=== PATIENT | male | born 1975 | race Caucasian/White ===

== ENCOUNTER 2019-10-21 13:29 | Emergency (ER) | payer OTHER ==
[2019-10-21] MEDS ORDERED: AMOXIC-POT CLAV 875-125MG 1 EACH TAB PO STA (13:42)
[2019-10-21 13:44] VITALS: BP 132/82; PULSE 85; RESP 18; TEMP 97.9
--- NOTE | 2019-10-21 13:47 | ED ---
Animal Bite HPI - General Stated Complaint: Animal Bite Time Seen by Provider: 10/21/19 13:34 Source: patient, RN notes reviewed Mode of arrival: ambulatory Limitations: no limitations - History of Present Illness Initial Comments: 44-year-old male presents emergency Department with chief complaint of squirrel bite to his right hand index finger. Patient states he had a squirrel in his house and which he try to get out and it bit his finger through the nail. There was minimal bleeding. Patient wasn't sure if he required rabies. He is up-to-date on his vaccinations. Patient denies any other complaints at this time. - Related Data Previous Rx's Medication Instructions Recorded Amoxicillin/Potassium Clav 1 tab PO Q12HR #14 tab 10/21/19 [Augmentin 875-125 Tablet] Review of Systems ROS Statement: Those systems with pertinent positive or pertinent negative responses have been documented in the HPI. ROS Other: All systems not noted in ROS Statement are negative. General Exam General appearance: alert, in no apparent distress Head exam: Present: atraumatic, normocephalic, normal inspection Respiratory exam: Present: normal lung sounds bilaterally. Absent: respiratory distress, wheezes, rales, rhonchi, stridor Cardiovascular Exam: Present: regular rate, normal rhythm, normal heart sounds. Absent: systolic murmur, diastolic murmur, rubs, gallop, clicks Extremities exam: Present: other (Right hand index finger there is a small laceration, puncture wound noted neurovascular intact full range of motion) Medical Decision Making - Medical Decision Making Patient has squirrel bite and which CBC recommendations are no rabies vaccine to be given patient we placed on antibiotics. Return parameters were discussed. Disposition Clinical Impression: Bitten by squirrel Disposition: HOME SELF-CARE Condition: Stable Instructions (If sedation given, give patient instructions): Animal Bite (ED) Additional Instructions: Please return to the Emergency Department if symptoms worsen or any other concerns. Prescriptions: Amoxicillin/Potassium Clav [Augmentin 875-125 Tablet] 1 tab PO Q12HR #14 tab Is patient prescribed a controlled substance at d/c from ED?: No Referrals: Isaac Vásquez MD [Primary Care Provider] - 1-2 days Time of Disposition: 13:46
== END 2019-10-21 13:55 | disposition home or self-care (01) ==
LOC: EC 13:29
DX: S61.210A Laceration without foreign body of right index finger without damage to nail, initial encounter (principal); S61.230A Puncture wound without foreign body of right index finger without damage to nail, initial encounter; W53.21XA Bitten by squirrel, initial encounter
CPT/HCPCS: 99283

== ENCOUNTER 2020-01-08 22:58 | Emergency (ER) | payer OTHER ==
[2020-01-08] MEDS ORDERED: MORPHINE SULFATE 4 MG/ML SYRINGE IV STA (23:27)
[2020-01-08] MEDS ORDERED: DIPH,PERTUS(ACELL)TETVAC-LF 0.5 ML VIAL IM ONE (23:27)
--- NOTE | 2020-01-08 23:42 | XR ---
EXAMINATION TYPE: XR hand limited LT DATE OF EXAM: 01/08/2020 COMPARISON: NONE HISTORY: Cat bite. Possible foreign body. TECHNIQUE: 2 views FINDINGS: Metacarpals are intact. I see no fracture nor dislocation. There is no evidence of radiopaq ue foreign body. IMPRESSION: Negative left hand exam. No fracture. No sign of a foreign body.
[2020-01-08] MEDS ORDERED: AMPICILLIN-SULBACTAM 1.5 GM in SODIUM CHLORIDE 0.9% 50 ML IVPB ONE (23:45)
--- NOTE | 2020-01-08 23:57 | ED ---
Animal Bite HPI - General Chief Complaint: Animal Bite Stated Complaint: Cat bite L Hand Time Seen by Provider: 01/08/20 23:05 Source: patient Mode of arrival: ambulatory Limitations: no limitations - History of Present Illness Initial Comments: Memo is a 44 yo [id number] M who presents to emergency department today for evaluation of Right to the left hand. Patient reports that this afternoon around 1 PM he was at home with his When she got spooked by something, he attempted to reach down and pick her up but she bit him on the left hand. Patient reports that he immediately washed the bite with rubbing alcohol. He reports that since that time his hand is become swollen and painful which prompted him to come to the ER for evaluation. Patient does not believe he's had a tetanus vaccine in the past 5 years. - Related Data Previous Rx's Medication Instructions Recorded Amoxicillin/Potassium Clav 1 tab PO Q12HR #14 tab 10/21/19 [Augmentin 875-125 Tablet] Amoxicillin/Potassium Clav 1 tab PO Q12HR #14 tab 01/09/20 [Augmentin 875-125 Tablet] Allergies Allergy/AdvReac Type Severity Reaction Status Date / Time nicotine Allergy Unknown Verified 01/08/20 23:03 Review of Systems ROS Statement: Those systems with pertinent positive or pertinent negative responses have been documented in the HPI. ROS Other: All systems not noted in ROS Statement are negative. Past Medical History Past Medical History: No Reported History History of Any Multi-Drug Resistant Organisms: None Reported Past Surgical History: No Surgical Hx Reported Past Psychological History: No Psychological Hx Reported Smoking Status: Never smoker Past Alcohol Use History: None Reported Past Drug Use History: None Reported General Exam - General Exam Comments Initial Comments: Physical Exam GENERAL: Patient is well-developed and well-nourished. Patient is nontoxic and well-hydrated and is in no distress. HENT: Normocephalic, Atraumatic. EYES: PERRL, EOMI PULMONARY: Unlabored respirations. CARDIOVASCULAR: RRR Warm and well perfused extremities ABDOMEN: Non-distended SKIN: Single puncture wound on the dorsal surface and single puncture wound on the ventral surface of the left hand : Deferred NEUROLOGIC: Alert and oriented Normal speech Normal gait MUSCULOSKELETAL: Able to flex and extend left wrist full ROM of thumb decreased flexion of left index finger secondary to swelling and pain Left index finger position of comfort is straight, no flexion No fusiform swelling PSYCHIATRIC: No SI/HI Limitations: no limitations Left Hand L/R Front: 1 - other (Bite) Hand L/R Back: 1 - Puncture site Course Vital Signs 01/08/20 01/09/20 23:00 01:46 Temperature 97.6 F 98.1 F Pulse Rate 79 84 Respiratory 16 18 Rate Blood Pressure 155/92 141/93 O2 Sat by Pulse 100 100 Oximetry Medical Decision Making - Medical Decision Making Patient was seen and evaluated this [id number] nondiabetic 44-year-old male with Right the left hand, there is redness and swelling, x-rays obtained no foreign body retained Patient was given a single dose of IV Unasyn Patient prescribed Augmentin, advised to contact his primary care provider later today for follow-up, the borders of the cellulitis were marked the patient was advised to return if they have not improved after 24 hours of antibiotics. All questions pertaining care were answered return parameters were discussed patient was provided with follow-up with an orthopedic group or evaluation by hand surgeon as needed. Close return parameters were discussed patient multiple times. Patient understands. Patient provided written instructions for follow- up and return parameters. - Lab Data Result diagrams: 01/08/20 23:59 01/08/20 23:59 Lab Results 01/08/20 01/08/20 Range/Units 23:59 23:59 WBC 14.0 H (3.8-10.6) k/uL RBC 5.00 (4.30-5.90) m/uL Hgb 15.5 (13.0-17.5) gm/dL Hct 45.4 (39.0-53.0) % MCV 90.7 (80.0-100.0) fL MCH 31.1 (25.0-35.0) pg MCHC 34.2 (31.0-37.0) g/dL RDW 11.7 (11.5-15.5) % Plt Count 288 (150-450) k/uL Neutrophils % 76 % Lymphocytes % 16 % Monocytes % 6 % Eosinophils % 1 % Basophils % 0 % Neutrophils # 10.6 H (1.3-7.7) k/uL Lymphocytes # 2.2 (1.0-4.8) k/uL Monocytes # 0.8 (0-1.0) k/uL Eosinophils # 0.2 (0-0.7) k/uL Basophils # 0.0 (0-0.2) k/uL Sodium 138 (137-145) mmol/L Potassium 4.2 (3.5-5.1) mmol/L Chloride 104 (98-107) mmol/L Carbon Dioxide 24 (22-30) mmol/L Anion Gap 10 mmol/L BUN 14 (9-20) mg/dL Creatinine 0.90 (0.66-1.25) mg/dL Est GFR (CKD-EPI)AfAm >90 (>60 ml/min/1.73 sqM) Est GFR (CKD-EPI)NonAf >90 (>60 ml/min/1.73 sqM) Glucose 120 H (74-99) mg/dL Calcium 9.6 (8.4-10.2) mg/dL Total Bilirubin 1.1 (0.2-1.3) mg/dL AST 25 (17-59) U/L ALT 14 (4-49) U/L Alkaline Phosphatase 44 (38-126) U/L Total Protein 7.1 (6.3-8.2) g/dL Albumin 4.5 (3.5-5.0) g/dL Disposition Clinical Impression: Cat bite Disposition: HOME SELF-CARE Additional Instructions: Start taking Augmentin today Call your primary care doctor today to establish follow up Keep the hand elevated and apply ice for swelling, you can take tylenol/motrin for pain Return to the ER if pain/swelling gets severe or if you are not improving by wednesday Prescriptions: Amoxicillin/Potassium Clav [Augmentin 875-125 Tablet] 1 tab PO Q12HR #14 tab Is patient prescribed a controlled substance at d/c from ED?: No Referrals: Isaac Vásquez MD [Primary Care Provider] - 1-2 days [facility] [Provider Group] - 1-2 days
[2020-01-09 00:12] LABS: Basophils % (A) 0 %; Eosinophils # (A) 0.2 k/uL (0-0.7); Eosinophils % (A) 1 %; HCT 45.4 % (39.0-53.0); HGB 15.5 gm/dL (13.0-17.5); Lymphocytes # (A) 2.2 k/uL (1.0-4.8); Lymphocytes % (A) 16 %; MCH 31.1 pg (25.0-35.0); MCHC 34.2 g/dL (31.0-37.0); MCV 90.7 fL (80.0-100.0); Monocytes # (A) 0.8 k/uL (0-1.0); Monocytes % (A) 6 %; Neutrophils # (A) 10.6 k/uL (1.3-7.7); Neutrophils % (A) 76 %; Platelet Count 288 k/uL (150-450); RDW 11.7 % (11.5-15.5)
[2020-01-09 00:35] LABS: ALT 14 U/L (4-49); AST 25 U/L (17-59); African American GFR (CKD) >90 (>60 ml/min/1.73 sqM); Albumin 4.5 g/dL (3.5-5.0); Alkaline Phosphatase 44 U/L (38-126); Anion Gap 10 mmol/L; Blood Urea Nitrogen 14 mg/dL (9-20); Calcium 9.6 mg/dL (8.4-10.2); Carbon Dioxide 24 mmol/L (22-30); Chloride 104 mmol/L (98-107); Glucose 120 mg/dL (74-99); Non-African American GFR(CKD) >90 (>60 ml/min/1.73 sqM); Potassium 4.2 mmol/L (3.5-5.1); Sodium 138 mmol/L (137-145); Total Bilirubin 1.1 mg/dL (0.2-1.3); Total Protein 7.1 g/dL (6.3-8.2)
[2020-01-09] MEDS ORDERED: AMOXIC-POT CLAV 875MG STARTER PACK 2 TAB BTL PO STA (01:36)
[2020-01-09 01:48] VITALS: BP 141/93; PULSE 84; RESP 18; TEMP 98.1
== END 2020-01-09 01:48 | disposition home or self-care (01) ==
LOC: EC 22:58
DX: S61.452A Open bite of left hand, initial encounter (principal); Z23 Encounter for immunization; Z91.048 Other nonmedicinal substance allergy status; W55.01XA Bitten by cat, initial encounter
CPT/HCPCS: 36415; 80053; 85025; 87040; 73120; 90715; 99283; 96365; 90471; 96375; J2270; J0295

== ENCOUNTER 2023-04-17 06:45 | Emergency (ER) | payer OTHER ==
[2023-04-17 06:53] VITALS: BP 137/101; PULSE 101; RESP 20
--- NOTE | 2023-04-17 07:33 | ED ---
General Adult HPI - General Chief complaint: Eye Problems Stated complaint: Eye injury Time Seen by Provider: 04/17/23 07:07 Source: patient Mode of arrival: ambulatory Limitations: no limitations - History of Present Illness Initial comments: Dictation was produced using [employer] dictation software. please excuse any grammatical, word or spelling errors. Chief Complaint: 47-year-old male presents with left eyelid redness History of Present Illness: To 47-year-old male presents emergency Department with left eyelid redness. He states for the last 23 days he noticed some eyelid redness over his left upper eyelid. Denies any vision changes. Patient states that his eyes feel really crusty in the middle the night he recently rubs him to free of debris. States that feels like its getting worse. He is been taking his mother's erythromycin ointment. Patient has any medical comorbidities. States that he feels like his symptoms are getting worse. The ROS documented in this emergency department record has been reviewed and confirmed by me. Those systems with pertinent positive or negative responses have been documented in the HPI. All other systems are other negative and/or noncontributory. - Related Data Previous Rx's Medication Instructions Recorded Amoxicillin/Potassium Clav 1 tab PO Q12HR #14 tab 10/21/19 [Augmentin 875-125 Tablet] Amoxicillin/Potassium Clav 1 tab PO Q12HR #14 tab 01/09/20 [Augmentin 875-125 Tablet] Polymyxin B-Trimeth Sulf Ophth 2 drops BOTH EYES Q4H #10 ml 04/17/23 [Polytrim Opthalmic] Allergies Allergy/AdvReac Type Severity Reaction Status Date / Time nicotine Allergy Unknown Verified 04/17/23 06:53 Review of Systems ROS Statement: Those systems with pertinent positive or pertinent negative responses have been documented in the HPI. ROS Other: All systems not noted in ROS Statement are negative. Past Medical History Past Medical History: No Reported History History of Any Multi-Drug Resistant Organisms: None Reported Past Surgical History: No Surgical Hx Reported Past Psychological History: No Psychological Hx Reported Smoking Status: Never smoker Past Alcohol Use History: None Reported Past Drug Use History: None Reported General Exam - General Exam Comments Initial Comments: PHYSICAL EXAM: General Impression: Alert and oriented x3, not in acute distress HEENT: Normocephalic atraumatic, extra-ocular movements intact, pupils equal and reactive to light bilaterally, mucous membranes moist. Cardiovascular: Heart regular rate and rhythm Chest: Able to complete full sentences, no retractions, no tachypnea Musculoskeletal: Pulses present and equal in all extremities, no peripheral edema Motor: no focal deficits noted Neurological: CN II-XII grossly intact, no focal motor or sensory deficits noted Skin: Intact with no visualized rashes Psych: Normal affect and mood Ocular: Left upper eyelid stye. Some redness of the right upper and lower eyelid. No conjunctivitis, he blows round reactive, no hyphema, no proptosis Limitations: no limitations Course Vital Signs 04/17/23 06:47 Pulse Rate 101 H Respiratory 20 Rate Blood Pressure 137/101 O2 Sat by Pulse 99 Oximetry Medical Decision Making - Medical Decision Making Was pt. sent in by a medical professional or institution (MARCOS Carmichael, PRODUCT BLENDING SUPERVISOR, urgent care, hospital, or [facility]...) When possible be specific @ -No Did you speak to anyone other than the patient for history (EMS, parent, family, police, friend...)? What history was obtained from this source @ -No Did you review nursing and triage notes (agree or disagree)? Why? @ -I reviewed and agree with nursing and triage notes Were old charts reviewed (outside hosp., previous admission, EMS record, old EKG, old radiological studies, urgent care reports/EKG's, [facility] records)? Report findings @ -No old charts were reviewed Differential Diagnosis (chest pain, altered mental status, abdominal pain women, abdominal pain men, vaginal bleeding, musculoskeletal, weakness, fever, dyspnea, syncope, headache, dizziness, GI bleed, back pain, seizure, CVA, palpatations, mental health)? @ -Blepharitis, stye, conjunctivitis, orbital cellulitis, preseptal cellulitis EKG interpreted by me (3pts min.). @ -None done X-rays interpreted by me (1pt min.). @ -None done CT interpreted by me (1pt min.). @ -None done U/S interpreted by me (1pt. min.). @ -None done What testing was considered but not performed or refused? (CT, X-rays, U/S, labs)? Why? @ -None What meds were considered but not given or refused? Why? @ -None Did you discuss the management of the patient with other professionals (professionals i.e. , PA, PRODUCT BLENDING SUPERVISOR, lab, RT, psych nurse, social service director, director of outreach, teacher, community reinvestment act officer, case management specialist)? Give summary @ -No Was smoking cessation discussed for >3mins.? @ -No Was critical care preformed (if so, how long)? @ -No Were there social determinants of health that impacted care today? How? (Homelessness, low income, unemployed, alcoholism, drug addiction, transportation, low edu. Level, literacy, decrease access to med. care, penitentiary, rehab)? @ -No Was there de-escalation of care discussed even if they declined (Discuss DNR or withdrawal of care, Hospice)? DNR status @ -No What co-morbidities impacted this encounter? (DM, HTN, Smoking, COPD, CAD, Cancer, CVA, ARF, Chemo, Hep., AIDS, mental health diagnosis, sleep apnea, morbid obesity)? @ -None Was patient admitted / discharged? Hospital course, mention meds given and route, prescriptions, significant lab abnormalities, going to OR and other pertinent info. @ -47-year-old male with 2-3 days symptoms of stye eye. Vital signs upon arrival are within acceptable limits. Undiagnosed new problem with uncertain prognosis? @ -No Drug Therapy requiring intensive monitoring for toxicity (Heparin, Nitro, Insulin, Cardizem)? @ -No Were any procedures done? @ -No Diagnosis/symptom? Acute, or Chronic, or Acute on Chronic? Uncomplicated (without systemic symptoms) or Complicated (systemic symptoms)? @ -1. Acute Uncomplicated external hordeolum Side effects of treatment? @ -No Exacerbation, Progression, or Severe Exacerbation? @ -No Poses a threat to life or bodily function? How? (Chest pain, USA, CT, pneumonia, PE, COPD, DKA, ARF, appy, cholecystitis, CVA, Diverticulitis, Homicidal, Suicidal, threat to staff... and all critical care pts) @ -No Disposition Clinical Impression: Hordeolum Disposition: HOME SELF-CARE Condition: Good Instructions (If sedation given, give patient instructions): Claire (ED) Additional Instructions: Warm compresses Avoid eye makeup Prescriptions: Polymyxin B-Trimeth Sulf Ophth [Polytrim Opthalmic] 2 drops BOTH EYES Q4H #10 ml Is patient prescribed a controlled substance at d/c from ED?: No Referrals: Ezio Zapata MD [STAFF PHYSICIAN] - 1-2 days Time of Disposition: 07:32
== END 2023-04-17 08:01 | disposition home or self-care (01) ==
LOC: EC 06:45
DX: H00.016 Hordeolum externum left eye, unspecified eyelid (principal); Z88.6 Allergy status to analgesic agent
CPT/HCPCS: 99283